=== PATIENT | female | born 1955 | race Caucasian/White ===

== ENCOUNTER → 2016-06-15 | Outpatient (CLI) | payer BC ==
--- NOTE | 2016-06-15 14:33 | MAMMOGRAPHY REPORT ---
BILATERAL DIGITAL SCREENING MAMMOGRAM WITH CAD: 06/15/2016 CLINICAL HISTORY: Routine screening. Patient has no complaints. TECHNIQUE: Bilateral CC and MLO views were obtained. Current study was also evaluated with a Comput er Aided Detection (CAD) system. COMPARISON: Comparison is made to exams dated: 06/11/2015 mammogram, 02/28/2014 mammogram, 02/27/2013 ma mmogram, 02/08/2012 mammogram, 02/02/2010 mammogram, and 01/28/2009 mammogram - [facility]. BREAST COMPOSITION: The tissue of both breasts is heterogeneously dense, which may obscure small ma sses. FINDINGS: There are scattered stable punctate microcalcifications of the breast. Stable asymmetry i n the medial right breast. No new suspicious mass, architectural distortion or cluster of microcalc ifications is seen. IMPRESSION: ACR BI-RADS CATEGORY 1: NEGATIVE There is no mammographic evidence of malignancy. A 1 year screening mammogram is recommended. The p atient will receive written notification of the results. Approximately 10% of breast cancers are not detected with mammography. A negative mammographic repor t should not delay biopsy if a clinically suggestive mass is present. Davina Ronquillo M.D. ay/:06/15/2016 07:28:00 Patent Paralegal: Anushka Bajwa, [facility] letter sent: Normal 1/2 BI-RADS Code: ACR BI-RADS Category 1: Negative
== END | disposition home or self-care (01) ==
LOC: C.MAMM 07:12
PROVIDERS: ATTEND Internal Medicine
DX: Z12.31 Encounter for screening mammogram for malignant neoplasm of breast (principal)

== ENCOUNTER → 2017-06-20 | Outpatient (CLI) | payer OTHER ==
--- NOTE | 2017-06-20 12:45 | MAMMOGRAPHY REPORT ---
BILATERAL DIGITAL SCREENING MAMMOGRAM TOMOSYNTHESIS WITH CAD: 06/20/2017 CLINICAL HISTORY: Routine screening. Patient has no complaints. TECHNIQUE: Breast tomosynthesis in addition to standard 2D mammography was performed. Current study was also evaluated with a Computer Aided Detection (CAD) system. COMPARISON: Comparison is made to exams dated: 06/15/2016 mammogram, 06/11/2015 mammogram, 02/27/2013 ma mmogram, 02/08/2012 mammogram, and 02/02/2010 mammogram - [facility]. BREAST COMPOSITION: The tissue of both breasts is heterogeneously dense, which may obscure small mas ses. FINDINGS: There is a not definitely seen on the MLO tomosynthesis images. Possible area of architec tural distortion in the lateral, middle to posterior right breast on the CC tomosynthesis images (sli ce 20/49), although this could represent normal overlapping fibrolinear markings, additional spot com pression tomosynthesis views and possible ultrasound are recommended. In the left retroareolar middl e one third of the breast, there is a 12 mm focal asymmetry which could also represent normal overlap ping tissue although additional spot compression tomosynthesis views and possible ultrasound are vaishnavi mmended. No other suspicious mass, architectural distortion or cluster of microcalcifications is seen bilatera lly. IMPRESSION: ACR BI-RADS CATEGORY 0: INCOMPLETE EVALUATION: NEED ADDITIONAL IMAGING EVALUATION The possible architectural distortion in the lateral right breast and a 12 mm focal asymmetry in the retroareolar middle one third of the left breast need additional imaging evaluation. The patient will be called to schedule an appointment. Approximately 10% of breast cancers are not detected with mammography. A negative mammographic report should not delay biopsy if a clinically suggestive mass is present. Davina Ronquillo M.D. ay/:06/20/2017 08:22:09 Railway [employer] Assistant: Kina BONILLA(Milo)(Richard), [facility] letter sent: Addl Imaging 0 BI-RADS Code: ACR BI-RADS Category 0: Incomplete Evaluation: Need Additional Imaging Evaluation
== END | disposition home or self-care (01) ==
LOC: C.MAMM 07:14
PROVIDERS: ATTEND Internal Medicine
DX: Z12.31 Encounter for screening mammogram for malignant neoplasm of breast (principal); N64.89 Other specified disorders of breast; R92.8 Other abnormal and inconclusive findings on diagnostic imaging of breast

== ENCOUNTER → 2017-07-10 | Outpatient (CLI) | payer OTHER ==
--- NOTE | 2017-07-10 15:08 | MAMMOGRAPHY REPORT ---
BILATERAL DIGITAL DIAGNOSTIC MAMMOGRAM TOMOSYNTHESIS AND TARGETED BILATERAL ULTRASOUND: 07/10/2017 CLINICAL HISTORY: 62-year-old woman called back from screening mammography for a possible area of arc hitectural distortion in the lateral right breast and a focal asymmetry in the retroareolar left [address]. TECHNIQUE: Bilateral spot compression CC and MLO 2D and tomosynthesis images were obtained. COMPARISON: Comparison is made to exams dated: 06/20/2017 mammogram, 06/15/2016 mammogram, 06/11/2015 ma mmogram, 02/28/2014 mammogram, 02/27/2013 mammogram, and 02/08/2012 mammogram - [facility]. BREAST COMPOSITION: The tissue of both breasts is heterogeneously dense, which may obscure small mas ses. FINDINGS: There is effacement of the focal asymmetry in the retroareolar left breast on the spot comp ression 2D and tomosynthesis images. Also effacement of the questionable area of architectural disto rtion in the lateral right breast on the spot compression CC view. Overall, no obvious masses, asymm etries or areas of architectural distortion are definitely identified. Further evaluation with ultra sound was performed. Targeted ultrasound was performed throughout the lateral right breast. A morphologically normal lymp h node is seen in the far lateral 9:00 axis. There is an oval parallel circumscribed hypoechoic mass without posterior acoustic enhancement or posterior shadowing or internal vascularity in the 9:00 ri ght breast, 2 cm from the nipple, measuring 3.7 x 2.2 x 4.9 mm. Normal hypoechoic tissue versus a be nign-appearing mixed echogenicity mass in the 10:00 right breast, 2 cm from the nipple measures 9.8 x 3.6 mm. No area of architectural distortion identified in real-time ultrasound scanning. No defini te suspicious solid mass identified. Targeted ultrasound was also performed in the left breast 11:00, 12:00, 1:00, retroareolar and 5:00, 6:00 and 7:00 axes. Sonographically normal tissue is seen without a discrete solid or cystic mass. IMPRESSION: ACR-BI-RADS CATEGORY 3: PROBABLY BENIGN, TARGETED ULTRASOUND ACR-BI-RADS CATEGORY 3: PRO BABLY BENIGN 1. There is effacement of the questionable architectural distortion in the lateral right breast, and no suspicious sonographic correlate identified. Incidentally noted are benign-appearing masses vers us normal tissue in the right 9:00 and 10:00 axes on ultrasound. A short interval follow-up right di agnostic tomosynthesis mammogram and repeat targeted ultrasound is recommended to ensure stability in 6 months. 2. There is effacement of the focal asymmetry in the retroareolar left breast and no suspicious sono graphic correlate identified. Given the strong family history of breast cancer and heterogeneously d ense breasts, a short interval follow-up left diagnostic tomosynthesis mammogram and possible ultraso und is recommended to ensure stability in 6 months. These results and recommendations were discussed with the patient at the time of the exam. She tenta tively scheduled the follow-up appointment prior to leaving our department. Approximately 10% of breast cancers are not detected with mammography. A negative mammographic report should not delay biopsy if a clinically suggestive mass is present. Davina Ronquillo M.D. ay/:07/10/2017 09:33:17 Associate Scientist: Anushka BONILLA(Milo)(Richard), [facility] letter sent: Follow Up Recommended 3 BI-RADS Code: ACR-BI-RADS Category 3: Probably Benign Ultrasound BI-RADS: ACR-BI-RADS Category 3: Pr obably Benign
== END | disposition home or self-care (01) ==
LOC: C.MAMM 08:47
PROVIDERS: ATTEND Internal Medicine
DX: N64.89 Other specified disorders of breast (principal); R92.8 Other abnormal and inconclusive findings on diagnostic imaging of breast; Z80.3 Family history of malignant neoplasm of breast